=== PATIENT | female | born 1985 | race Caucasian/White ===

== ENCOUNTER 2019-08-14 21:01 | Emergency (ER) | payer SELFPAY ==
--- NOTE | 2019-08-14 21:21 | ED Physician Documentation ---
General Adult - HISTORIAN Historian: patient - HPI Chief Complaint: General Adult Additional Information: 33 year old female presents to the ER with c/o numbness and tingling to hands for years. Has not had anything for the discomfort. She also c/o a bump to the back of the head (scab from ingrown hair). Discussed with patient to call the clinic to establish care. Onset: other (years) Timing: still present Severity: mild - ROS CONST: no problems EYES/ENT: none CVS/RESP: none GI/: none MS/SKIN/LYMPH: none - PAST HX Past History: other Other History: diabetes Type 2 Immunizations: UTD Allergies/Adverse Reactions: Allergies Allergy/AdvReac Type Severity Reaction Status Date / Time amoxicillin trihydrate Allergy Verified 10/02/16 20:02 [From Amoxil] aspirin Allergy Verified 10/02/16 20:02 Penicillins Allergy Verified 10/02/16 20:02 sulfamethoxazole Allergy Verified 10/02/16 20:02 [From Bactrim] trimethoprim [From Bactrim] Allergy Verified 10/02/16 20:02 Home Medications: Ambulatory Orders Medication Instructions Recorded Azithromycin [Zithromax] 250 mg PO DAILY #4 tablet 10/02/16 Insulin Glargine,Hum.rec.anlog 0 unit SQ HS 10/02/16 [Lantus Solostar] metFORMIN HCl [Glucophage] 500 mg PO [id number] 10/02/16 - SOCIAL HX Smoking History: non-smoker Alcohol Use: none Drug Use: none - FAMILY HX Family History: No - VITAL SIGNS Vital Signs: Vital Signs Temp Pulse Resp BP Pulse Ox 120/80 10/02/16 20:51 - REVIEWED ASSESSMENTS Nursing Assessment Reviewed: Yes Vitals Reviewed: Yes General Adult Physical Exam - PHYSICAL EXAM GENERAL APPEARANCE: no distress EENT: eye inspection normal, ENT inspection normal, pharynx normal, no signs of dehydration, ELIZABETH NECK: normal inspection RESPIRATORY: breath sounds normal CVS: heart sounds normal SKIN: warm/dry, normal color EXTREMITIES: non-tender, normal range of motion NEURO: oriented X3, CN's nml as tested, motor nml, sensation nml, mood/affect nml, cognition normal Discharge Clincal Impression: Paresthesia of both hands Referrals: Primary Doctor,No [Primary Care Provider] - 2 Days Additional Instructions: Call to the clinic [phone] to establish care Alternate Ibuprofen and Tylenol for discomfort in hands Start taking B6 and B12 for neuropathy pain Condition: Good Disposition: 01 HOME, SELF-CARE Decision to Admit: NO Decision Time: 21:20
[2019-08-14 21:22] VITALS: BP 116/83
== END 2019-08-14 21:17 | disposition home or self-care (01) ==
LOC: ED 21:01
DX: R20.2 Paresthesia of skin (principal); R22.2 Localized swelling, mass and lump, trunk
CPT/HCPCS: 99282

== ENCOUNTER 2019-09-02 22:02 | Emergency (ER) | payer SELFPAY ==
--- NOTE | 2019-09-02 22:19 | ED Physician Documentation ---
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 Onset: days ago Timing: better Severity: mild Modifying Factors: burned on grill - ROS CONST: no problems EYES/ENT: none CVS/RESP: none GI/: none MS/SKIN/LYMPH: none NEURO/PSYCH: denies: headache - PAST HX Past History: none Other History: diabetes Type 2 Immunizations: tetanus, UTD Allergies/Adverse Reactions: Allergies Allergy/AdvReac Type Severity Reaction Status Date / Time amoxicillin trihydrate Allergy Verified 09/02/19 22:17 [From Amoxil] aspirin Allergy Verified 09/02/19 22:17 Penicillins Allergy Verified 09/02/19 22:17 sulfamethoxazole Allergy Verified 09/02/19 22:17 [From Bactrim] trimethoprim [From Bactrim] Allergy Verified 09/02/19 22:17 Home Medications: Ambulatory Orders Medication Instructions Recorded metFORMIN HCl [Glucophage] 500 mg PO [id number] 10/02/16 - SOCIAL HX Smoking History: non-smoker Alcohol Use: none Drug Use: none - FAMILY HX Family History: No - VITAL SIGNS Vital Signs: Vital Signs Temp Pulse Resp BP Pulse Ox 98.4 F 91 H 16 140/87 99 09/02/19 22:02 09/02/19 22:02 09/02/19 22:02 09/02/19 22:02 09/02/19 22:02 - REVIEWED ASSESSMENTS Nursing Assessment Reviewed: Yes Vitals Reviewed: Yes ED Results Lab/Radiology - Orders Orders: ED Orders Category Date Time Status Apply/change dressing NOW Care 09/02/19 22:18 Ordered Triple Antibiotic Ointment 1T Care 09/02/19 22:18 Ordered General Adult Physical Exam - PHYSICAL EXAM GENERAL APPEARANCE: no distress EENT: eye inspection normal, ENT inspection normal, pharynx normal, ELIZABETH NECK: normal inspection RESPIRATORY: breath sounds normal CVS: heart sounds normal SKIN: warm/dry, normal color, other (scab to the right hand-healing burn) EXTREMITIES: normal range of motion NEURO: oriented X3 Discharge Clincal Impression: Burn of right hand Referrals: Primary Doctor,No [Primary Care Provider] - 2 Days Additional Instructions: Apply antibiotic ointment and dressing to hand Alternate Tylenol and Ibuprofen as needed for discomfort Condition: Stable Disposition: 01 HOME, SELF-CARE Decision to Admit: NO Decision Time: 02:26
[2019-09-02 22:54] VITALS: BP 136/81
== END 2019-09-02 22:31 | disposition home or self-care (01) ==
LOC: ED 22:02
DX: T23.001A Burn of unspecified degree of right hand, unspecified site, initial encounter (principal); X16.XXXA Contact with hot heating appliances, radiators and pipes, initial encounter
CPT/HCPCS: 99282